=== PATIENT | female | born 1990 | race African-American/Black ===

== ENCOUNTER 2023-05-07 12:02 | Emergency (ER) | payer BC, SELFPAY ==
[2023-05-07] MEDS ORDERED: Aspirin Chewable 81 MG TAB ONE (12:38)
[2023-05-07] MEDS ORDERED: Ondansetron PF 4 MG/2 ML Vial ONE (12:39)
[2023-05-07] MEDS ORDERED: Famotidine/PF 20 mg/2ml Vial ONE (12:39)
[2023-05-07] MEDS ORDERED: Pantoprazole 40 MG VIAL ONE (12:39)
[2023-05-07] MEDS ORDERED: Sodium Chloride 0.9% 1,000 ML ONE (12:39)
[2023-05-07 12:59] LABS: #Basophils 0.1 thou/uL (0.0-0.2); #Eosinphils 0.1 thou/uL (0.0-0.7); #Lymphocytes 2.6 thou/uL (1.20-3.40); #Monocytes 0.6 thou/uL (0.11-0.59); #Neutrophils 3.4 thou/uL (1.40-6.50); %Basophils 1.2 % (0.0-1.0); %Eosinophils 1.6 % (0.0-10.0); %Lymphocytes 37.9 % (21.0-51.0); %Monocytes 8.7 % (0.0-10.0); %Neutrophils 50.5 % (42.0-75.0); Hematocrit 47.2 % (36.0-47.0); Hemoglobin 16.3 g/dL (12.0-16.0); Mean Corpuscular HGB CONC 34.6 g/dL (32.0-36.0); Mean Corpuscular Hemoglobin 32.7 pg (27.0-31.0); Mean Corpuscular Volume 94.4 fl (78.0-98.0); Mean Platelet Volume 8.6 fL (7.4-10.4); Platelet Count 287 10x3/uL (130-400); RBC Distribution Width 10.3 % (11.5-14.5); White Blood Cell (WBC) Count 6.8 10x3/uL (4.8-10.8)
[2023-05-07 13:14] LABS: ALT (SGPT) 117 U/L (8-55); AST (SGOT) 74 U/L (5-34); Albumin 4.8 g/dL (3.5-5.0); Alkaline Phosphatase 152 U/L (40-110); Anion Gap 21 mmol/L (10-20); BUN (Urea Nitrogen) 11 mg/dL (7.0-18.7); Calc. Creatinine Clearance 0 mL/min (70-130); Calcium 9.9 mg/dL (7.8-10.44); Carbon Dioxide 20 mmol/L (22-29); Chloride 97 mmol/L (98-107); Estimated GFR 70; Globulin 2.9 g/dL (2.4-3.5); Glucose 109 mg/dL (70-105); Lipase 11 U/L (8-78); Potassium 3.1 mmol/L (3.5-5.1); Protein, Total 7.7 g/dL (6.0-8.3); Sodium 135 mmol/L (136-145)
[2023-05-07 13:15] LABS: Troponin I 0.012 ng/mL (< 0.028)
[2023-05-07] MEDS ORDERED: Potassium Chloride 20 MEQ TAB ONE (14:09)
[2023-05-07 16:16] LABS: Troponin I Less than 0.010 ng/mL (< 0.028)
== END 2023-05-07 17:05 | disposition home or self-care (01) ==
LOC: NAV ERS 12:02
DX: K29.00 Acute gastritis without bleeding (principal); R74.01 Elevation of levels of liver transaminase levels; R07.89 Other chest pain; E86.0 Dehydration; E78.00 Pure hypercholesterolemia, unspecified; I10 Essential (primary) hypertension; Z87.891 Personal history of nicotine dependence
CPT/HCPCS: 71045; 80053; 83690; 84484; 85025; 93005; 96361; 96374; 96375; C9113; J2405; J7050; S0028

== ENCOUNTER 2024-06-21 19:29 | Emergency (ER) | payer OTHER, BC ==
[2024-06-21] MEDS ORDERED: Ibuprofen 200 MG TAB ONE (19:43)
== END 2024-06-21 20:50 | disposition home or self-care (01) ==
LOC: NAV ERS 19:29
DX: S86.012A Strain of left Achilles tendon, initial encounter (principal); E78.5 Hyperlipidemia, unspecified; I10 Essential (primary) hypertension; Z87.891 Personal history of nicotine dependence; X58.XXXA Exposure to other specified factors, initial encounter; Y93.89 Activity, other specified
CPT/HCPCS: 99283